=== PATIENT | female | born 1975 | race Caucasian/White ===

== ENCOUNTER → 2017-06-18 | Outpatient (CLI) | payer OTHER ==
--- NOTE | 2017-06-22 09:44 | MAMMOGRAPHY REPORT ---
BILATERAL DIGITAL SCREENING MAMMOGRAM TOMOSYNTHESIS WITH CAD: 06/18/2017 CLINICAL HISTORY: Routine screening. During this screening exam the patient reported an area of lump /thickening in the left upper outer quadrant which had been recently worked up at an outside institut ion with diagnostic mammography and ultrasound. The patient also underwent surgical consultation wit a breast surgeon, Dr. Luis Ramesh. Based on an outside mammogram and ultrasound report dated 05/02, no suspicious abnormality was seen mammographically or on ultrasound and the exam was coated B I-RADS 2benign. TECHNIQUE: Breast tomosynthesis in addition to standard 2D mammography was performed. Current study was also evaluated with a Computer Aided Detection (CAD) system. COMPARISON: Comparison is made to exams dated: 05/02/2017 mammogram, 05/02/2017 ultrasound, 06/12/2016 ma mmogram, 06/01/2014 mammogram, 05/20/2013 mammogram, and 05/08/2015 mammogram - [facility]. BREAST COMPOSITION: There are scattered areas of fibroglandular density in both breasts. FINDINGS: A triangular palpable marker overlies the upper outer posterior left breast, denoting the a danii of lump and or thickening pointed out by the patient. No obvious mass, asymmetry, area of distor tion or calcifications are seen near the area of concern, or elsewhere throughout the remainder of ei ther breast. Overall, there has been no significant interval change comparing to prior mammograms. IMPRESSION: ACR BI-RADS CATEGORY 2: BENIGN 1. Stable mammographic appearance of the breasts, without mammographic evidence of malignancy. 2. The patient reported a lump and/or thickening in the left upper outer quadrant in which a prior d iagnostic workup failed to reveal any imaging abnormality. [facility], as biopsy of a clinically suspicious mass should not be preclud ed by negative imaging. Otherwise, a 1 year screening mammogram is recommended. The patient will receive written notificatio n of the results. Approximately 10% of breast cancers are not detected with mammography. A negative mammographic report should not delay biopsy if a clinically suggestive mass is present. Nichelle Solorio M.D. ay/:06/18/2017 16:05:06 Developer Advocate: Carole JOHNSON(Yaya)(M), [facility] letter sent: Normal 05/01 BI-RADS Code: ACR BI-RADS Category 2: Benign
== END | disposition home or self-care (01) ==
LOC: C.MAMM 13:14
PROVIDERS: ATTEND Obstetrics & Gynecology
DX: Z12.31 Encounter for screening mammogram for malignant neoplasm of breast (principal)

== ENCOUNTER → 2017-07-23 | Outpatient (CLI) | payer OTHER ==
[~2017-07-23] MED LIST: BUPR-79 PO; CETI10TA84 PO; EPP3/2 IM; ESTR1TAB2 PO; MAGN400T6 PO; MULT-506 PO; VNTHFA/IN INH; VSK5 PO
== END | disposition home or self-care (01) ==
LOC: C.LABMFLN 07:54
PROVIDERS: ATTEND Family Medicine
DX: E16.2 Hypoglycemia, unspecified (principal)

== ENCOUNTER → 2017-08-07 | Day surgery (SDC) | payer OTHER ==
[2017-07-10 16:17] VITALS: Ht 170.2 cm; Wt 86.4 kg
[~2017-08-07] VITALS: Ht 170.2 cm; Wt 86.4 kg
[~2017-08-07] MED LIST changes: +ATROPINE SULFATE 0.1 MG/ML 5ML SYR IV PRN; +BUPIVACAINE 0.5 % 5 MG/1 ML MPF 30ML VIAL ONE; +CEFAZOLIN 2000MG IV PUSH 15 ML IV SCH; +DEXAMETHASONE SOD INJ 4 MG/ML VIAL ONE; +EpHEDrine SULFATE INJ 50 MG/ML AMP IV PRN; +FENTANYL CITRATE INJ 50 MCG/1 ML 2 ML VIAL ONE; +KETOROLAC TROMETHAMINE 30 MG/ML VIAL ONE; +LACTATED RINGER'S 1000ML 1,000 ML IV SCH; +LIDOCAINE HCL 1% 20 ML VIAL ONE; +LIDOCAINE HCL 2% 2 ML VIAL (20MG/ML) ONE; +MIDAZOLAM HCL 1 MG/ML 2ML VIAL ONE; +ONDANSETRON INJ 2 MG/ML 2 ML VIAL IV PRN; +ONDANSETRON INJ 2 MG/ML 2 ML VIAL ONE; +PROPOFOL IV EMULSION 10 MG/ML 20 ML VIAL IV ONE; +SCOPOLAMINE 1.5 MG TDSY TD ONE; +SODIUM CHLORIDE 0.9% 1000ML 1,000 ML IV SCH; +TRAM-10 PO; +TRAMADOL HCL 50 MG TAB PO PRN
--- NOTE | 2017-08-07 07:28 | History & Physical Bridge - [place] ---
H&P Re-Evaluation Bridge Note: I have examined the patient, reviewed the History & Physical and in the interval since the performance of the History & Physical I have noted the following changes of clinical significance: No changes noted
--- NOTE | 2017-08-07 08:15 | [facility] Operative Report ---
Operative Report Operative Date Aug 07, 2017. Pre-Operative Diagnosis Left Breast Lump Post-Operative Diagnosis same Procedure(s) Performed Left Breast Biopsy Surgeon Dr. Myke Ramesh Guitar Instructor Surgeon(s) Tracy Boss PA-C Estimated Blood Loss 10CC Findings lipoma, and breast tissue Specimens A. Left Breast Tissue-out of pt @0802-in formalin @ 0803. Anesthesia Type General Complication(s) none Disposition Recovery Room / PACU I attest to the content of the Intraoperative Record and any orders documented therein. Any exceptions are noted below.
--- NOTE | 2017-08-07 08:22 | Discharge Instructions-SurgCtr ---
Discharge Instructions Date of Service Aug 07, 2017. Visit Reason for Visit: Left Breast Mass Discharge Discharge Diagnosis / Problem: Lt breast mass Discharge Goals Goal(s): Decrease discomfort, Improve function, Improve disease control Activity Recommendations Activity Limitations: as noted below Lifting Limitations: no more than 25 pounds Exercise/Sports Limitations: until after follow-up appointment May Resume Sexual Activity: when tolerated Shower/Bathe: tomorrow Driving or Machine Use: resume 1 day after discharge Anesthesia . Post Anesthesia Instructions: If you have had General Anesthesia or IV Sedation: * Do not drive today. * Resume driving when surgeon permits. * Do not make important decisions or sign legal documents today. * Call surgeon for: 1. Temperature elevations greater than 101 degrees F. 2. Uncontrollable pain. 3. Excessive bleeding. 4. Persistent nausea and vomiting. 5. Medication intolerance (nausea, vomiting or rash). * For nausea and vomiting use only clear liquids such as: tea, soda, bouillon until nausea subsides, then gradually increase diet as tolerated. * If you have any concerns or questions, call your surgeon's office. If physician is unavailable and it is an emergency, call 911 or go to the nearest emergency room. . Instructions / Follow-Up Instructions / Follow-Up SPECIAL CARE INSTRUCTIONS: * Cover incisions and change daily for comfort/drainage. * May use ibuprofen for pain as tolerated. * Expect some swelling and bruising. Call your doctor if: * Temperature above 101 degrees * Pain not relieved by pain medicine ordered * There is increased drainage or redness from any incision * You have any unanswered questions or concerns [phone]. FOLLOW UP VISIT: If not already scheduled, please call the office for a follow-up visit. for next approx 10 days- next week- or Sun- wound check OFFICE PHONE NUMBER: Dr. Ramesh Office Diet Recommendations Home Diet: resume previous diet Procedures Procedures Performed: Left Breast Biopsy Pending Studies Studies pending at discharge: no Medical Emergencies . Who to Call and When: Medical Emergencies: If at any time you feel your situation is an emergency, please call 911 immediately. . Non-Emergent Contact Non-Emergency issues call your: Primary Care Provider, Surgeon . . "Provider Documentation" section prepared by Luis Ramesh. .
[2017-08-07] MEDS: FENTANYL CITRATE INJ 50 MCG/1 ML 2 ML VIAL IV PRN ×2 (09:07→09:14)
--- NOTE | 2017-08-07 09:16 | Anesthesia Progress Nt - [facility] ---
Anesthesia Post Op Note Date & Time Aug 07, 2017 at 09:15 Vital Signs Pain Intensity: 4 Vital Signs Past 12 Hours Date Time Temp Pulse Resp B/P (MAP) Pulse Ox O2 Delivery O2 Flow Rate FiO2 08/07/17 08:34 36.2 70 12 127/79 100 Mask 6 08/07/17 06:56 36.5 77 16 127/87 (100) 97 Room Air Notes Mental Status: alert / awake / arousable, participated in evaluation Pt Amnestic to Procedure: Yes Nausea / Vomiting: adequately controlled Pain: adequately controlled Airway Patency, RR, SpO2: stable & adequate BP & HR: stable & adequate Hydration State: stable & adequate Anesthetic Complications: no major complications apparent
[2017-08-07 09:33] VITALS: PULSE 77; TEMP 36.4
--- NOTE | 2017-08-07 09:33 | OPERATIVE REPORT ---
DATE OF OPERATION: 08/07/2017 NAME OF OPERATION: Left breast biopsy. PREOPERATIVE DIAGNOSIS: Left breast mass. POSTOPERATIVE DIAGNOSIS: Left breast mass. STAFF SURGEON: Luis Ramesh MD ANESTHESIA: General LMA. APARTMENT GROUNDSKEEPER: Tracy Boss PA-C PROCEDURE: The patient was brought in the operating room and placed on the operating table in supine position. Preoperatively, we marked the site of the palpable breast mass in the left breast. Transverse incision was made after appropriate 0.5% plain Marcaine was used to anesthetize skin and subcutaneous tissue. Dissection was carried down encountering a lipoma and then I took additional tissue deep to this. It was sent for routine pathology. Deep tissue was reapproximated using 2-0 plain catgut suture then the skin reapproximated using subcuticular 5-0 Prolene with knots placed outside the skin. THE PATIENT DOES HAVE AN ADHESIVE ALLERGY AND WE WERE CONCERNED THAT STERI-STRIPS MAY IRRITATE THE SKIN. Dressing applied with paper tape and then the patient transferred to recovery room in stable condition. As a note, my assistant store manager operations helped with prepping, draping, exposure of the tissue, and closure of the wound. I attest to the content of the Intraoperative Record and any orders documented therein. Any exception s are noted below.
[2017-08-07 10:03] VITALS: BP 113/75; O2SAT 100
== END | disposition home or self-care (01) ==
LOC: X.SURG 06:42
PROVIDERS: ATTEND Surgery
DX: N63.20 Unspecified lump in the left breast, unspecified quadrant (principal); K21.9 Gastro-esophageal reflux disease without esophagitis; J45.909 Unspecified asthma, uncomplicated; F41.9 Anxiety disorder, unspecified; Z68.29 Body mass index [BMI] 29.0-29.9, adult; F32.9 Major depressive disorder, single episode, unspecified; Z91.038 Other insect allergy status; Z85.828 Personal history of other malignant neoplasm of skin; E78.5 Hyperlipidemia, unspecified; E66.3 Overweight; F41.0 Panic disorder [episodic paroxysmal anxiety]; Z90.710 Acquired absence of both cervix and uterus; Z90.89 Acquired absence of other organs; Z82.0 Family history of epilepsy and other diseases of the nervous system; Z82.49 Family history of ischemic heart disease and other diseases of the circulatory system; Z82.3 Family history of stroke; Z80.0 Family history of malignant neoplasm of digestive organs; Z83.3 Family history of diabetes mellitus; Z88.5 Allergy status to narcotic agent; Z88.2 Allergy status to sulfonamides; Z91.048 Other nonmedicinal substance allergy status; Z90.722 Acquired absence of ovaries, bilateral